=== PATIENT | female | born 1975 | race Caucasian/White ===

== ENCOUNTER → 2016-07-08 15:48 | Outpatient (CLI) | payer MEDICAID | END | disposition home or self-care (01) | LOC: D.LAB 15:48 | DX: J30.9 Allergic rhinitis, unspecified (principal) ==

== ENCOUNTER → 2017-10-11 09:37 | Outpatient (CLI) | payer OTHER ==
--- NOTE | ~2017-10-11 | EC ---
PATIENT:REJI HUGHES DATE OF SERVICE: 10/11/17 SEX: F MEDICAL RECORD: [id number] DATE OF : [birth year] LOCATION:D[facility] AGE OF PATIENT: 42 ADMISSION DATE: 10/11/17 REFERRING PHYSICIAN: INTERPRETING PHYSICIAN: CHRISTINE ARMSTRONG MD ECHOCARDIOGRAM REPORT ECHO CHARGES 4 ECHO COMPLETE Date: 10/11 CLINICAL DIAGNOSIS: CHEST PAIN,PALPS,HTN ECHOCARDIOGRAPHIC MEASUREMENTS (adult normal given) AC root (d.<3.7cm) 3.1 cm LV Septum d (<1.2 cm> 1.4 cm Valve Excursion 1.2 cm LV Septum (systole) 1.6 cm Left Atria (s.<4.0cm> 3.3 cm LVPW d(<1.2cm) 1.2 cm RV (d.<2.3cm) 3.3 cm LVPW (sytole) 1.6 cm LV diastole(<5.6CM) 3.9 cm MV E-F(>70mm/sec) cm LV systole 2.1 cm LVOT Diameter 1.9 cm MV exc.(>10mm) 1.3 cm Est.ejection fraction (50-75%) % DOPPLER: LVIT cm/sec A 64.0 cm/sec E 95.0 cm/sec LA cm/sec RVSP 19 mmHg LVOT 106 cm/sec AOP1/2T m/s Asc. Ao 129 cm/sec RVOT 92 cm/sec RA cm/sec PA 117 cm/sec AV Gradient Peak 6.68 mmHg AV Mean 3.41 mmHg AV Area 2.4 cm MV Gradient Peak 5.69 mmHg MV Mean 1.72 mmHg MV Area cm COMMENTS: Competitive Athlete: Keyshawn SIM Contact Lens Fitter: Juan Carlos Armstrong TAPE# PACS Pericardial Effusion N DATE OF SERVICE: PROCEDURE: Transthoracic echocardiogram. FINDINGS: 1. Left ventricle shows evidence of mild left ventricular hypertrophy. Inflow characteristics are normal. Ejection fraction 65%. There are no regional wall motion abnormalities. 2. The left atrium is normal size and function. 3. The aortic valve is normal. ECHOCARDIOGRAM REPORT [id number] REJI HUGHES 4. The mitral valve has mild mitral regurgitation. 5. The tricuspid valve is normal. RVSP is normal. 6. The right ventricle is mildly dilated. 7. The right atrium is normal size, shape and function. 8. The pulmonic valve is normal. CONCLUSIONS: The patient has evidence of mild left ventricular hypertrophy with normal inflow characteristics, preserved left ventricular systolic function. TRANSINT:[id number] Voice Confirmation ID: [id number] DOCUMENT ID: [id number] CHRISTINE ARMSTRONG MD at 0719 CC: [id number] DICTATION DATE: 10/17/17 1043 CANDY DIPPER: 10/17/17 1249 [facility] CLI 10/11/[address] [address]
[~2017-10-11 09:37] MED LIST: HYDROCHLOROTHIA25 MG PO; NORVASC2.5 MG PO; TOPROL XL25 MG PO
[2017-11-15 07:27] VITALS: BMI 31.2
== END | disposition home or self-care (01) ==
LOC: D.ECHO 09:37
DX: R07.9 Chest pain, unspecified (principal); R00.2 Palpitations; I10 Essential (primary) hypertension; E78.5 Hyperlipidemia, unspecified

== ENCOUNTER → 2017-11-15 07:07 | Outpatient (CLI) | payer OTHER ==
[~2017-11-15] VITALS: Ht 154.9 cm; Wt 75.0 kg
--- NOTE | ~2017-11-15 | OP ---
PATIENT NAME: REJI HUGHES MEDICAL RECORD: [id number] :79 LOCATION:D.[facility] ADMISSION DATE: SURGEON: ARMANDO ARMSTRONG MD DATE OF OPERATION: 11/15/2017 PROCEDURE: Left heart cath, LV gram, coronary angiogram. ALUMINIZER: Armando Armstrong MD PROCEDURE IN DETAIL: The patient was brought to the cardiac catheterization lab in stable condition. Right wrist sterilely prepped and draped. The patient had a 6-Armenian sheath placed in the right radial artery in a retrograde fashion using a modified Seldinger technique. We then utilized a diagnostic catheter to intubate the left main coronary artery, the right coronary artery, and the left ventricular cavity respectively for complete left heart catheterization. FINDINGS: 1. Left main is normal. 2. The LAD has mild plaquing. 3. The circumflex is nondominant and normal. 4. The RCA is a dominant vessel, normal. HEMODYNAMICS: Left ventricular ejection fraction 65%. End-diastolic pressure was normal. There is no significant mitral regurgitation. No gradient across the aortic valve. IMPRESSION: Trivial to mild coronary artery disease with preserved LV systolic function. RECOMMENDATIONS: Medical management. TRANSINT:[id number] Voice Confirmation ID: [id number] DOCUMENT ID: [id number] ARMANDO ARMSTRONG MD at 1144 CC: [id number] DICTATION DATE: 11/15/17 0953 AV SPECIALIST: 11/15/17 1201 [facility] CLI 11/15/17 [id number] [place] [address]
--- NOTE | ~2017-11-15 | HEMODYNAMI ---
PATIENT:REJI HUGHES MEDICAL RECORD: [id number] : 79 [facility]ATION:[facility] ADMISSION DATE: 11/15/17 Generatedon:11/15/20179:58 Patient name: REJI HUGHES Patient #: [id number] SSN: D OB: 1975 Date of study: 11/15/2017 Page: Of Hemodynamic Procedure Report Patient Data Patient Demographics Procedure consent was obtained First Name: REJI Gender: Female Last Name: ELLEN : 1975 [facility] Initial: E Age: 42 year(s) Patient #: [id number] Race: Unknown Additional ID: [id number] Contact details Address: [employer] State: [place] City: [facility] [place] [place] Zip code: [address] Past Medical History Allergies Allergen Reaction Date Comments Reported Other allergy 11/15/2017 PCN, Lisinopril, Iodine, Temazepam, Lisinopril, Bactrim Admission Admission Data Admission Date: 11/15/2017 Admission Time: 7:07 Admit Source: Other Lab Results Lab Result Date: 11/15/2017 Lab Result Time: 7:40 Biochemistry Name Units Result Min Max BUN mg/dl 32 --(----)-* 7 18 Creatinine mg/dl 0.8 --(-*--)-- 0.6 1.3 CBC Name Units Result Min Max Hematocrit % 42.2 --(*---)-- 42 54 Hemoglobin g/dl 14.9 --(-*--)-- 13.5 17.5 Procedure Procedure Types Cath Procedure Diagnostic Procedure C [facility] w/Coronaries Sedation Charges Moderate Sedation up to 15 minutes Procedure Description Procedure Date Procedure Date: 11/15/2017 Procedure Start Time: 9:39 Procedure End Time: 9:57 Procedure Staff Name Function Armando Paul MD Performing Physician Vijay Mcnally RT Monitor Jaxson Desouza RN Nurse Procedure Data Cath Procedure Fluoroscopy Diagnostic fluoroscopy Total fluoroscopy Time: 2.2 time: 2.2 min min Diagnostic fluoroscopy Total fluoroscopy dose: 290 dose: 290 mGy mGy Contrast Material Contrast Material Type Amount (ml) Isovue 300 53 Entry Location Entry Primary Successful Side Size Upsize Upsize Entry Closure Gregg ccessful Closure Location (Fr) 1 (Fr) 2 (Fr) Remarks Device Remarks Radial Right 6 Fr Mechanical artery Short Compression Estimated blood loss: 5 ml Diagnostic catheters Device Type Used For End Catheter Placement DIAGNOSTIC Daniel 110cm Procedure 5Fr catheter ([id number]) Procedure Complications No complications Procedure Medications Medication Administration Route Dosage 0.9% NaCl I.V. 100 ml/hr Oxygen etCO2 Nasal cannula 2 l/min Heparin Flush Bag added to field 2 bags (1000units/500ml NS) Lidocaine 2% added to field 20 Radial Cocktail added to field 1 syringe (Verapomil 2mg/Nitro 400mcg/Heparin 1500units) Versed I.V. 2 mg Fentanyl I.V. 50 mcg Radial Cocktail I.A. 1 syringe (Verapomil 2mg/Nitro 400mcg/Heparin 1500units) Benadryl I.V. 50 mg Hemodynamics Rest HGB: 14.9 (g/dl) Heart Rate: 62 (bpm) Pressure Samples Time Site Value (mmHg) Purpose Heart Use Rate(bpm) 9:47 LV 95/39,20 Snapshot 96 Gradients Valve Time Site Site Mean SEP/DFP Peak To Heart Use 1 2 (mmHg) (sec/min) Peak Rate (mmHg) (bpm) Aortic 9:48 LV AO 73 Snapshots Pre Cath Intra NCS Post Cath Vital Signs Time Heart Resp SPO2 etCO2 NIBP (mmHg) Rhythm Pain Sedation Rate (ipm) (%) (mmHg) Status Level (bpm) 9:26:14 54 21 100 0 118/77(100) NSR 0 (11) 10(A) , No pain 9:30:55 63 15 100 0 112/70(95) NSR 0 (11) 10(A) , No pain 9:35:33 62 14 99 31.5 115/72(91) NSR 0 (11) 10(A) , No pain 9:40:14 71 20 98 33.1 107/67(86) NSR 0 (11) 10(A) , No pain 9:44:54 66 13 99 35.4 104/64(86) NSR 0 (11) 10(A) , No pain 9:49:33 80 22 96 32.3 99/60(80) NSR 0 (11) 10(A) , No pain 9:54:12 67 4 98 20.3 96/56(82) NSR 0 (11) 10(A) , No pain Medications Time Medication Route Dose Verified Delivered Reason Notes Effectiveness by by 9:27:46 0.9% NaCl I.V. 100 Jaxson Jaxson Per ml/hr Lyly Desouza physician RN RN 9:27:55 Oxygen etCO2 2 l/min Jaxson Jaxson Per Nasal Lyly Desouza physician cannula RN RN 9:28:05 Heparin Flush added 2 bags Jaxson Jaxson used for Bag to Lyly Desouza procedure (1000units/500ml field RN RN NS) 9:28:16 Lidocaine 2% added 20ml Jaxson Jaxson for local to vial Lorigan Lyly anesthetic RN RN 9:28:34 Radial Cocktail added 1 Jaxson Jaxson used for (Verapomil to syringe Lyly Desouza procedure 2mg/Nitro RN RN 400mcg/Heparin 1500units) 9:29:22 Benadryl I.V. 50 mg Jaxson Jaxson Per Lyly Desouza physician RN RN 9:37:06 Versed I.V. 2 mg Jaxson Jaxson for sedation Lyly Desouza RN RN 9:37:14 Fentanyl I.V. 50 mcg Jaxson Jaxson for sedation Lyly Desouza RN RN 9:45:23 Radial Cocktail I.A. 1 Jaxson Armando for (Verapomil syringe Lyly cardoza 2mg/Nitro RN 400mcg/Heparin 1500units) Procedure Log Time Note 9:13:21 Admit Source: Other 9:14:00 Johnnie Johnson RT scrub 9:14:04 Diagnostic Cath status Elective 9:14:06 Jaxson Desouza RN sent for patient. Start room use. 9:14:33 Time tracking: Regular hours (M-F 7:00 - 5:00) 9:14:38 Plan of Care:Hemodynamics will remain stable., Cardiac rhythm will remain stable., Comfort level will be maintained., Respiratory function will remain adequate., Patient/ family verbilizes understanding of procedure., Procedure tolerated without complication., Recovers from procedure without complications.. 9:14:43 Patient received from Pre/Post Procedure Room to CCL 1 Alert and oriented. Tansferred to table in Supine position. 9:14:45 Warm blankets applied, and erin hugger turned on for patient comfort. 9:14:45 Correct patient and procedure confirmed by team. 9:14:48 Signed procedure consent form obtained from patient. 9:14:50 ECG and BP/O2 sat monitors applied to patient. 9:25:20 Vital chart was started 9:27:46 0.9% NaCl 100 ml/hr I.V. was administered by Jaxson Desouza RN; Per physician; 9:27:55 Oxygen 2 l/min etCO2 Nasal cannula was administered by Jaxson Desouza RN; Per physician; 9:28:05 Heparin Flush Bag (1000units/500ml NS) 2 bags added to field was administered by Jaxson Desouza RN; used for procedure; 9:28:16 Lidocaine 2% 20ml vial added to field was administered by Jaxson Desouza RN; for local anesthetic; 9:28:34 Radial Cocktail (Verapomil 2mg/Nitro 400mcg/Heparin 1500units) 1 syringe added to field was administered by Jaxson Desouza RN; used for procedure; 9:29:22 Benadryl 50 mg I.V. was administered by Jaxson Desouza RN; Per physician; 9:31:31 Baseline sample Acquired. 9:31:33 Rhythm: sinus rhythm 9:31:34 Full Disclosure recording started 9:31:43 H&P Date Dictated: 10/25/2017 Within 30 days and on chart., H&P Addendum completed by physician on day of procedure. (MUST COMPLETE FOR ALL OUTPATIENTS). 9:31:44 Pre-procedure instructions explained to patient. 9:31:44 Pre-op teaching completed and patient verbalized understanding. 9:31:46 Family in waiting room. 9:31:47 Patient NPO since Midnight. 9:33:14 Patient allergic to Other allergyPCN, Lisinopril, Iodine, Temazepam, Lisinopril, Bactrim 9:33:16 Is the patient allergic to Iodine/contrast media? Yes. 9:33:18 Was the patient premedicated? Yes 9:33:19 Is patient on blood thinner?Yes 9:33:21 ACC The patient was administered the following blood thiners within the last 24 hours: ACCPlavix 9:33:23 Patient diabetic? No. 9:33:25 Previous problem with sedation/anesthesia? No ? 9:33:27 Snore? Yes 9:33:29 Sleep apnea? No 9:33:30 Deviated septum? No 9:33:31 Opens mouth fully? Yes 9:33:32 Sticks out tongue? Yes 9:33:34 Airway obstruction? No ? 9:33:36 Dentures? No ? 9:33:38 Modified Armand's test Ulnar < 7 seconds 9:33:39 Patient pain scale 0/10 ?. 9:34:13 IV patent on arrival in left hand with 0.9% NaCl at [facility]. 9:35:03 Lab Result : BUN 32 mg/dl 9:35:03 Lab Result : Creatinine 0.8 mg/dl 9:35:03 Lab Result : Hemoglobin 14.9 g/dl 9:35:03 Lab Result : Hematocrit 42.2 % 9:35:06 Lab results completed and on chart. 9:35:08 Right Radial & Right Groin area was prepped with chlora-prep and draped in sterile fashion 9:35:09 Alarms reviewed by R. N. 9:35:09 Sharps counted by scrub and verified by R.N. 9:35:12 Use device set Radial Dx or PCI 9:35:13 ACIST Syringe (34819) opened to sterile field. 9:35:14 Medline Cath Pack ([id number]) opened to sterile field. 9:35:14 Bag Decanter () opened to sterile field. 9:35:17 ACIST Hand Control (88699) opened to sterile field. 9:35:17 ACIST Manifold (93281) opened to sterile field. 9:35:18 Tegaderm 4 x 4 (1626W) opened to sterile field. 9:35:18 MBrace Wrist Support ([id number]) opened to sterile field. 9:35:20 DIAGNOSTIC WIRE .035 260cm J wire (078297) opened to sterile field. 9:35:23 SHEATH 6Fr Prelude Radial ([id number]) opened to sterile field. 9:35:30 Physician arrived 9:35:30 --------ALL STOP TIME OUT------ 9:35:31 Final Timeout: patient, procedure, and site verified with staff and physician. All members of the team are in agreement. 9:35:32 Right Radial & Right Groin site verified by team. 9:35:35 Physical assessment completed. ASA score P 2 - A patient with mild systemic disease as per Armando Paul MD. 9:35:39 Sedation plan: IV Moderate Sedation Medication:Versed, Fentanyl 9:35:46 Patient not . Patient has had tubal. 9:37:06 Versed 2 mg I.V. was administered by Jaxson Desouza RN; for sedation; 9:37:14 Fentanyl 50 mcg I.V. was administered by Jaxson Desouza RN; for sedation; 9:39:26 Procedure started. 9:39:29 Local anesthetic to right radial artery with Lidocaine 2% by Armando Paul MD.INITIAL ACCESS ONLY 9:39:42 Zero performed for pressure channel P1 9:42:25 A 6 Fr Short sheath was inserted into the Right Radial artery 9:44:53 A DIAGNOSTIC Daniel 110cm 5Fr catheter ([id number]) was advanced over the wire and used for Procedure. 9:45:23 Radial Cocktail (Verapomil 2mg/Nitro 400mcg/Heparin 1500units) 1 syringe I.A. was administered by Armando Paul MD; for vasodilation; 9:46:37 LV hemodynamics recorded. 9:47:38 LV gram done using ADRIAN 9:47:41 Injector settings: Ml/sec: 12, Volume: 8, 9:48:08 RCA angiography performed. 9:50:34 LCA angiography performed. 9:50:46 Catheter removed. 9:50:54 TR BAND Standard ([id number]) opened to sterile field. 9:51:02 Sheath removed intact; hemostasis achieved with Mechanical Compression to the Right Radial artery. 9:51:04 Procedure ended.(Physican Out) 9:54:41 Fluoroscopy time 02.20 minutes. 9:54:48 Fluoroscopy dose: 290 mGy 9:54:48 Flurop Dose total: 290 9:54:52 Contrast amount:Isovue 300 53ml. 9:54:53 Sharps counted by scrub and verified by R.N. 9:54:55 TR band inflated with 12cc of air. 9:54:57 Insertion/operative site no bleeding no hematoma. 9:55:01 Post right radial artery:stable, soft, clean and dry 9:55:04 Post Procedure Pulses reassessed and unchanged 9:55:07 Post-procedure physical assessment completed. ASA score P 2 - A patient with mild systemic disease as per Armando Paul MD. 9:55:10 Post procedure rhythm: unchanged. 9:55:12 Estimated blood loss: 5 ml 9:55:14 Post procedure instruction explained to patient.Patient verbalizes understanding. 9:55:14 Patient needs reinforcement of post procedure teaching. 9:56:06 Procedure type changed to Cath procedure, Diagnostic procedure, LHC, LHC w/Coronaries, Sedation Charges, Moderate Sedation up to 15 minutes 9:57:24 Procedure and supply charges have been captured, reviewed, submitted and are correct. 9:57:27 Procedure Complication : No complications 9:57:29 Vital chart was stopped 9:57:29 See physician's report for complete and final results. 9:57:30 Report given to Pre/Post Procedure Room. 9:57:32 Patient transfered to Pre/Post Procedure Room with Stretcher. 9:57:34 Procedure ended. 9:57:34 Full Disclosure recording stopped 9:57:38 End room use (Document Last) Device Usage Item Name Manufacture Quantity Catalog Number Hospital Part Current M inimal Lot# / Charge Number Stock Stock Serial# Code ACIST Syringe Acist 1 89901 [id number] [id number] [id number] 2 0 (20809) [employer] Medline Cath Cardinal 1 [id number] 973309 60188 389157 5 Pack Health ([id number]) Bag Decanter Microtek 1 2001S 054921 27790 107565 5 () Medical Inc. ACIST Hand Acist 1 74095 988492 760774 815195 5 Control (27835) [employer] ACIST Manifold Acist 1 00577 082040 294727 875238 5 (19224) [employer] Inc Tegaderm 4 x 4 3M 1 1626W 566840 074570 827096 5 (1626W) MBrace Wrist Advanced 1 140-0250-00 025390 35105 464437 5 Support Vascular ([id number]) Dynamics DIAGNOSTIC WIRE St Mal 1 198812 190784 841384 484032 3 0 .035 260cm J wire (756913) SHEATH 6Fr Merit 1 [id number] 572845 966783 887472 5 Prelude Radial Medical ([id number]) TR BAND Terumo 1 [id number] 755121 879719 857716 4 0 Standard ([id number]) DIAGNOSTIC Terumo 1 03-7572 837797 732291 506995 5 Daniel 110cm 5Fr catheter (438135) Signature Audit [place] Stage Time Signature Unsigned Intra-Procedure 11/15/2017 Vijay Mcnally 9:58:25 AM RT(R) Signatures Monitor : Vijay Mcnally RT Signature : Date : Time : [id number] [place] [address]
[2017-11-15 07:27] VITALS: BP 112/73; Ht 154.9 cm; Wt 75.0 kg
[2017-11-15 07:54] LABS: BASOPHILS 0.2 % (0-2); EOSINOPHILS 1.9 % (0-7); HEMATOCRIT 42.2 % (36.0-48.0); HEMOGLOBIN 14.9 g/dL (12-16); IMMATURE GRANULOCYTES 0.2 % (0-5); MCH 31.4 pg (26.0-34.0); MCHC 35.3 g/dL (31.0-37.0); MCV 88.8 fL (80.0-100.0); MEAN PLATELET VOLUME 10.7 fL (7.4-10.4); MONOCYTES 6.1 % (2-11); NEUTROPHILS 61.6 % (40-80); RBC 4.75 10x6/uL (4.00-5.40); RDW 13.4 % (11.5-14.5); WBC 9.2 10x3/uL (4.8-10.8)
[2017-11-15 07:55] LABS: PLATELET COUNT 217 10x3/uL (130-400)
[2017-11-15 08:15] LABS: CALC OSMOLALITY 284 mosm/kg (275-300); CALCIUM 8.8 mg/dL (8.5-10.1); CARBON DIOXIDE 28.1 mmol/L (21.0-32.0); CHLORIDE - SERUM 104 mmol/L (98-107); CREATININE - SERUM 0.8 mg/dL (0.6-1.3); GLUCOSE 106 mg/dL (74-106); POTASSIUM - SERUM 3.5 mmol/L (3.5-5.1); SODIUM 139 mmol/L (136-145); UREA NITROGEN 32 mg/dL (7-18); eGFR NON AFRICAN AMERICAN 84 mL/min (90-120)
== END | disposition home or self-care (01) ==
LOC: D.CATH 07:07
PROVIDERS: Internal Medicine Cardiovascular Disease
DX: R07.89 Other chest pain (principal); I25.10 Atherosclerotic heart disease of native coronary artery without angina pectoris; Z01.812 Encounter for preprocedural laboratory examination

== ENCOUNTER → 2018-01-17 16:19 | Outpatient (CLI) | payer OTHER ==
[2017-11-15 07:27] VITALS: BMI 31.2
[2018-01-17 18:17] LABS: CHOL - HDL RATIO 5.8 ratio (2.3-4.1); LDL-HDL RATIO 4.1 ratio (1.5-3.5)
== END | disposition home or self-care (01) ==
LOC: D.LABREF 16:19
PROVIDERS: Internal Medicine Cardiovascular Disease
DX: I10 Essential (primary) hypertension (principal)

== ENCOUNTER → 2018-07-11 15:06 | Outpatient (CLI) | payer OTHER ==
[2017-11-15 07:27] VITALS: BMI 31.2
[2018-07-11 15:35] LABS: ALT (SGPT) 30 U/L (10-68); LIPASE 255 U/L (73-393)
== END | disposition home or self-care (01) ==
LOC: D.LABREF 15:06
PROVIDERS: ATTEND Internal Medicine Cardiovascular Disease
DX: E78.5 Hyperlipidemia, unspecified (principal)

== ENCOUNTER → 2018-07-25 16:41 | Outpatient (CLI) | payer OTHER ==
[2017-11-15 07:27] VITALS: BMI 31.2
[2018-07-25 17:36] LABS: CHOL - HDL RATIO 4.7 ratio (2.3-4.1)
== END | disposition home or self-care (01) ==
LOC: D.LABREF 16:41
PROVIDERS: ATTEND Internal Medicine Cardiovascular Disease
DX: I10 Essential (primary) hypertension (principal)

== ENCOUNTER 2019-08-31 19:51 | Emergency (ER) | payer OTHER ==
[~2019-08-31] VITALS: Ht 154.9 cm; Wt 70.5 kg
[2019-08-31 20:12] VITALS: Ht 154.9 cm; Wt 70.5 kg
[2019-08-31] MEDS ORDERED: PRAVACHOL20 MG PO (20:14)
[2019-08-31 21:07] VITALS: BP 139/91
== END 2019-08-31 20:52 | disposition home or self-care (01) ==
LOC: D.ER 19:51
DX: M25.531 Pain in right wrist (principal); I10 Essential (primary) hypertension; Z72.0 Tobacco use; R20.0 Anesthesia of skin